=== PATIENT | female | born 1990 | race Caucasian/White ===

== ENCOUNTER 2017-03-21 03:21 | Emergency (ER) | payer BC ==
[~2017-03-21] VITALS: Ht 165.1 cm; Wt 68.0 kg
[2017-03-21] MEDS ORDERED: CYCLOBENZAPRINE5 MG PO (04:41)
[2017-03-21] MEDS ORDERED: NORCO 5-325 TA1 EACH PO (04:41)
[2017-03-21 04:53] VITALS: BP 109/61
== END 2017-03-21 04:54 | disposition home or self-care (01) ==
LOC: ER 03:21
DX: S16.1XXA Strain of muscle, fascia and tendon at neck level, initial encounter (principal); M43.6 Torticollis; X50.0XXA Overexertion from strenuous movement or load, initial encounter; Y93.89 Activity, other specified; Y92.89 Other specified places as the place of occurrence of the external cause; Y99.8 Other external cause status